=== PATIENT | female | born 1965 | race Caucasian/White ===

== ENCOUNTER 2022-04-01 04:18 | Emergency (ER) | payer MEDICAID ==
[~2022-04-01] VITALS: Ht 157.5 cm; Wt 76.2 kg
[2022-04-01] MEDS ORDERED: KETOROLAC TROMETHAMINE INJ 30 MG/ML VIAL ONE (04:37)
--- NOTE | 2022-04-01 04:42 | NUR ---
BIBSELF C/O ATRAUMATIC RIGHT HEEL PAIN X 2 DAYS FELT WORSE TONIGHT. PT AMBULATORY WITH INCREASED PAIN UPON BEARING WAIT. AWAKE AND ALERT X4 BREATHING EVEN AND UNLABORED ALL V/S WNL.
[2022-04-01] MEDS ORDERED: KETOROLAC TROMETHAMINE INJ 30 MG/ML VIAL IM ONE (05:00)
[2022-04-01] MEDS ORDERED: IBUP-1957 PO (05:43)
[2022-04-01] MEDS ORDERED: TRAM-351 PO (05:43)
--- NOTE | 2022-04-01 05:53 | NUR ---
Patient discharged to home in stable condition. Written and verbal after care instructions given. Patient verbalizes understanding of instruction.
[2022-04-01 05:54] VITALS: BP 152/86
== END 2022-04-01 05:54 | disposition home or self-care (01) ==
LOC: ER 04:30
DX: M79.671 Pain in right foot (principal); Z60.2 Problems related to living alone; Z79.899 Other long term (current) drug therapy
CPT/HCPCS: 73630; 96372; 99283; J1885